=== PATIENT | female | born 1935 | race Caucasian/White ===

== ENCOUNTER → 2024-01-04 | Outpatient (CLI) | payer MEDICARE ==
[~2024-01-04] VITALS: Ht 152.4 cm; Wt 65.8 kg
[~2024-01-04] MED LIST: Regadenoson 0.08 MG/ML 5 ML VIAL IV SCH
== END ==
LOC: CARDREHAB 10:00
DX: I20.89 Other forms of angina pectoris (principal); F45.42 Pain disorder with related psychological factors; E78.2 Mixed hyperlipidemia; E11.42 Type 2 diabetes mellitus with diabetic polyneuropathy; Z15.89 Genetic susceptibility to other disease
CPT/HCPCS: A9500; J2785